=== PATIENT | female | born 1960 | race Caucasian/White ===

== ENCOUNTER 2018-08-21 17:08 | Emergency (ER) | payer SELFPAY ==
[2018-08-21 17:18] VITALS: BP 158/95; PULSE 76; TEMP 98.4; BMI 23.3
--- NOTE | 2018-08-21 17:19 | PDOC ---
Rapid Medical Evaluation Chief Complaint: Back Pain Time Seen by Provider: 08/21/18 17:15 Medical Evaluation: 08/21/18 17:16 I have performed a brief in-person evaluation of this patient. The patient presents with a chief complaint of: acute onset of right hip/ thigh pain since last PM- qwas sitting on cough with legs crossed. No fevers/ no problems with urine or bowels Pertinent physical exam findings: walks slowly, no spine tenderness- + tense tight low paravert. muscles. I have ordered the following: LS SPine, UA The patient will proceed to the ED for further evaluation. 08/21/18 17:18
--- NOTE | 2018-08-21 17:40 | PDOC ---
History of Present Illness - General Chief Complaint: Pain Stated Complaint: LT HIP PAIN Time Seen by Provider: 08/21/18 17:15 - History of Present Illness Initial Comments: 08/21/18 17:38 -year-old female presents for evaluation of atraumatic onset of left hip pain 2 days. Sports the lateral aspect of her left hip as the area of her discomfort the pain is exacerbated with activity and touch relieved with rest and free of radiation. Past History - Past Medical History Allergies/Adverse Reactions: Allergies Allergy/AdvReac Type Severity Reaction Status Date / Time No Known Allergies Allergy Verified 08/21/18 17:16 Home Medications: Ambulatory Orders Ibuprofen [Advil -] 400 mg PO QID PRN 08/21/18 COPD: No - Suicide/Smoking/Psychosocial Hx Smoking History: Never smoked Review of Systems - Review of Systems Constitutional: No: Fever Musculoskeletal: Yes: See HPI, Joint Pain All Other Systems: Reviewed and Negative *Physical Exam - Vital Signs Last Vital Signs Temp Pulse Resp BP Pulse Ox 98.4 F 76 18 158/95 97 08/21/18 17:17 08/21/18 17:17 08/21/18 17:17 08/21/18 17:17 08/21/18 17:17 - Physical Exam Comments: 08/21/18 17:38 Left hip skin color and temperature are normal range of motion and internal and external rotation are full. There is tenderness about the area of the greater trochanter. Buying calf are soft and nontender chest 5 out of 5 strength in bilateral lower extremities without gross sensorimotor deficits negative straight leg raise test she's neurovascularly intact Medical Decision Making - Medical Decision Making 08/21/18 17:39 Left hip operated show bursitis anti-inflammatories follow-up with orthopedic *DC/Admit/Observation/Transfer Diagnosis at time of Disposition: Hip bursitis, left - Discharge Dispostion Disposition: HOME Condition at time of disposition: Stable Decision to Admit order: No - Referrals Referrals: Estiven Wagner MD [Staff Physician] - - Patient Instructions Printed Discharge Instructions: DI for Hip Bursitis Additional Instructions: Follow-up with orthopedic surgery in 2-3 days for further evaluation and treatment options. Anti-inflammatory such as Motrin as directed you may also take Tylenol. Return to the emergency room should symptoms worsen or go unresolved. - Post Discharge Activity
== END 2018-08-21 17:48 | disposition home or self-care (01) ==
LOC: JERFT 17:08
DX: M70.72 Other bursitis of hip, left hip (principal)
CPT/HCPCS: 99281-25

== ENCOUNTER 2024-02-13 20:27 | Emergency (ER) | payer SELFPAY ==
[2024-02-13 20:42] VITALS: BMI 21.6
[2024-02-13] MEDS ORDERED: ACETAMINOPHEN INJECTION 100 ML IVPB ONE (21:37)
[2024-02-13] MEDS: ACETAMINOPHEN 1000 MG/100 ML BAG IVPB ONE (21:59)
[2024-02-13] MEDS: LACTATED RINGERS SOLUTION 1000 ML INFUS.BAG IV ONE (22:00)
[2024-02-13 22:02] LABS: BASO % 1.2 % (0-2.0); EOS % 1.5 % (0-4.5); HEMATOCRIT 48.6 % (32.4-45.2); HEMOGLOBIN 16.3 GM/dL (10.7-15.3); MCH 32.1 pg (25.7-33.7); MCHC 33.5 g/dl (32.0-36.0); MEAN CELL VOLUME 95.7 fl (80-96); MEAN PLT VOLUME 7.9 fl (7.5-11.1); MONO % 8.6 % (3.8-10.2); NEUT % 31.7 % (42.8-82.8); PLATELET COUNT 249 10^3/uL (134-434); RBC 5.08 M/mm3 (3.60-5.2); RDW 13.7 % (11.6-15.6); WHITE BLOOD COUNT 5.7 K/mm3 (4.0-10.0)
[2024-02-13 22:07] LABS: INR 1.11 (0.83-1.09); PROTHROMBIN TIME (PATIENT) 12.9 SEC (9.7-13.0)
[2024-02-13 22:10] LABS: ACTIVATED PTT 33.8 SECONDS (25.2-36.5)
[2024-02-13 22:26] LABS: POTASSIUM 4.8 mmol/L (3.5-5.1)
[2024-02-13 22:28] LABS: CALCIUM 8.9 mg/dL (8.5-10.1)
[2024-02-13 22:29] LABS: ALBUMIN 3.7 g/dl (3.4-5.0); BLOOD UREA NITROGEN 20.7 mg/dL (7-18); MAGNESIUM 2.1 mg/dL (1.8-2.4)
[2024-02-13 22:32] LABS: CREATININE 0.8 mg/dL (0.55-1.3)
[2024-02-13 22:34] LABS: BILIRUBIN,TOTAL 0.5 mg/dL (0.2-1); TOT PROT 7.8 g/dl (6.4-8.2)
[2024-02-13 23:48] VITALS: BP 132/80; PULSE 77; RESP 18; TEMP 97.7
== END 2024-02-14 00:39 | disposition home or self-care (01) ==
LOC: JER 20:27
PROC: 3E033NZ Introduction of Analgesics, Hypnotics, Sedatives into Peripheral Vein, Percutaneous Approach (ICD-10-PCS; principal; 2024-02-13)
DX: R20.2 Paresthesia of skin (principal); R42 Dizziness and giddiness; R07.89 Other chest pain
CPT/HCPCS: 36415; 70450-TC; 71046-TC-FY; 80053; 83735; 84484; 85025; 85610; 85730; 93005; 93010; 99285-25; J0131